=== PATIENT | male | born 1960 | race Caucasian/White ===

== ENCOUNTER 2021-08-06 08:50 | Emergency (ER) | payer OTHER, SELFPAY ==
--- NOTE | ~2021-08-06 | XR_ITS ---
EXAMINATION: XR chest 2V DATE: 08/06/2021 09:20 INDICATION: Productive cough TECHNIQUE: PA and lateral views of the chest are obtained. COMPARISON: None available FINDINGS: The lungs are free of acute opacities. There is no pleural effusion or pneumothorax. The ca rdiomediastinal silhouette is normal. There is mild thoracic spondylosis. IMPRESSION: 1. No acute cardiopulmonary abnormality. Reviewed, dictated and finalized at location A.
--- NOTE | 2021-08-06 09:00 | ED.URI ---
HPI - URI/Sore Throat General Chief Complaint: Upper Respiratory Infection Stated Complaint: Cough Time Seen by Provider: 08/06/21 09:06 Source: patient and RN notes reviewed Mode of arrival: ambulatory Limitations: no limitations History of Present Illness HPI Narrative: 60-year-old male presents to the [facility] with complaints of cough, fevers, wheezing, congestion for the last 4 to 5 days. had similar symptoms a week ago and is better. Has tried multiple [id number] products with no relief Onset (ago): day(s) (4-5) Consistency: constant Able to tolerate fluids by mouth: Yes Relieving factors: nothing Related Data Home Medications Medication Instructions Recorded Confirmed ezetimibe 10 mg tablet 10 tablet PO DAILY 08/06/21 08/06/21 fenofibrate nanocrystallized 145 145 mg PO DAILY 08/06/21 08/06/21 mg tablet losartan 50 mg tablet 50 mg PO DAILY 08/06/21 08/06/21 semaglutide 1 mg/dose (4 mg/3 mL) 0.5 mg subcut WEEKLY 08/06/21 08/06/21 subcutaneous pen injector (Ozempic) tadalafil 20 mg tablet 20 mg PO DAILY 08/06/21 08/06/21 Allergies Allergy/AdvReac Type Severity Reaction Status Date / Time No Known Allergies Allergy Verified 08/06/21 09:10 Review of Systems Review of Systems: All systems reviewed & are unremarkable except as noted in HPI and below Constitutional: Constitutional: Reports as per HPI, Reports chills and Reports fever(s) Eyes: Eyes: Reports no additional eye complaints ENT: Reports system reviewed and no additional complaints, except as documented Cardiovascular: Cardiovascular: Reports no additional cardiovascular complaints Respiratory: Respiratory: Reports as per HPI, Reports chest congestion, Reports cough, Reports dyspnea and Reports wheezing Gastrointestinal: Gastrointestinal: Reports no additional gastrointestinal complaints Musculoskeletal: Musculoskeletal: Reports no additional musculoskeletal complaints Integumentary/Breasts: Skin/Breast: Reports system reviewed and no additional complaints, except as docu Neurologic: Reports system reviewed and no additional complaints, except as documented Psychiatric: Psychiatric: Reports no additional psychiatric complaints Allergic/Immunologic: Allergic/Immunologic: Reports no additional allergic/immunologic complaints [facility] Past Medical History Medical History (Updated 08/06/21 @ 09:42 by Eli Lee APRN) Bilateral calcaneal fractures High cholesterol History of high blood pressure Social History Social History (Updated 08/06/21 @ 09:11 by Eli Lee APRN) Living arrangements: with family Gender identity (if verbalized by the patient): Male Comments At the time of my signature, I reviewed and agree with the nursing past medical, surgical, social, and family history. There is no relevant family history pertinent to the patient complaint. Exam Const: General: healthy appearing, no acute distress and alert Nutritional Appearance: well nourished Orientation/consciousness: patient oriented x3 Limitations: no limitations HENMT: Head: normal to inspection Ears: external ears normal General nose exam: Normal external nose present Throat: posterior oropharynx normal Eyes: General: appearance normal, both eyes and all related structures Pupils: Equal, round and reactive pupils present Neck: Neck: normal visual inspection, no lymphadenopathy and no meningeal signs Chest: Chest palpation & inspection: normal inspection of the chest Resp: Effort & Inspection: normal respiratory effort and no use of accessory muscles Auscultation: no crackles, no rales, rhonchi, wheezes and diminished lung sounds bilateral Cardio: Rate: regular rate Rhythm: regular rhythm GI: GI Palp: Yes Soft to palpation and No Tenderness to palpation present (GI) Back/Spine/Pelvis: Cervical Spine: normal cervical lordosis Thoracic/Lumbar Spine: thoracic and lumbar spine normal to inspection Skin: General skin exam: normal
[2021-08-06 09:01] VITALS: BP 149/80; PULSE 91; RESP 16; TEMP 37.8; O2SAT 100
[2021-08-06 09:04] VITALS: BP 149/80; PULSE 91; RESP 16; RESP 20; TEMP 37.8; O2SAT 100
[2021-08-06] MEDS: IPRATROPIUM BR 0.02% INH SOLN 0.5 MG/2.5 ML VIAL INHALATION (09:16)
[2021-08-06] MEDS: ALBUTEROL SULFATE NEB 2.5 MG/3 ML INH INHALATION (09:17)
[2021-08-06 10:01] VITALS: PULSE 91; RESP 20; O2SAT 98
== END 2021-08-06 10:10 | disposition home or self-care (01) ==
PROVIDERS: Emergency Provider Nurse Practitioner; PCP Family Medicine
DX: J40 Bronchitis, not specified as acute or chronic (principal); E78.00 Pure hypercholesterolemia, unspecified; I10 Essential (primary) hypertension
CPT/HCPCS: 71046; 99203; G0463

== ENCOUNTER 2023-03-09 08:23 | Emergency (ER) | payer OTHER, SELFPAY ==
[2023-03-09 08:34] VITALS: BP 128/80; PULSE 75; RESP 16; TEMP 36.9; O2SAT 96
[2023-03-09 08:37] VITALS: BP 128/80; PULSE 75; RESP 16; TEMP 36.9; O2SAT 96
--- NOTE | 2023-03-09 08:47 | ED.URI ---
HPI - URI/Sore Throat General Chief Complaint: Upper Respiratory Infection Stated Complaint: Sinus Time Seen by Provider: 03/09/23 08:40 Source: patient and RN notes reviewed Mode of arrival: ambulatory Limitations: no limitations History of Present Illness HPI Narrative: Patient presents today complaining of a one-month history of sinus pressure and drainage with postnasal drip that can be yellow to brown. He has tried Mucinex D, Claritin D, nasal spray. Related Data Home Medications Medication Instructions Recorded Confirmed ezetimibe 10 mg tablet 10 tablet PO DAILY 08/06/21 03/09/23 fenofibrate nanocrystallized 145 145 mg PO DAILY 08/06/21 03/09/23 mg tablet losartan 50 mg tablet 50 mg PO DAILY 08/06/21 03/09/23 tadalafil 20 mg tablet 20 mg PO DAILY 08/06/21 03/09/23 Allergies Allergy/AdvReac Type Severity Reaction Status Date / Time No Known Allergies Allergy Verified 08/06/21 09:10 Review of Systems Review of Systems: CONSTITUTIONAL: Denies body aches, fever, chills, or sweats. EYES: Denies visual changes, redness, or discharge. ENT: Denies rhinorrhea, sore throat, or otalgia.+ congestion, sinus pressure, postnasal drip CARDIOVASCULAR: Denies chest pain, palpitations, or edema. RESPIRATORY: Denies cough or dyspnea. GASTROINTESTINAL: Denies abdominal pain, nausea, vomiting, or diarrhea. GENITOURINARY: Denies dysuria or hematuria. SKIN: Denies rash, itching, or wounds. MUSCULOSKELETAL: Denies back pain, joint pain, or myalgia. NEUROLOGIC: Denies headache, numbness, tingling, or weakness. PSYCH: Denies depression or anxiety. COUNTS INCLUDE 234 BEDS AT THE [facility] Past Medical History Medical History Bilateral calcaneal fractures High cholesterol History of high blood pressure Social History Social History Living arrangements: with family Gender identity (if verbalized by the patient): Male Comments At time of signature, I have reviewed and agree with nursing past medical, surgical, social and family history unless otherwise noted. Please see nursing chart for further information. There is no relevant family history pertinent to the presenting complaint Exam Narrative: GENERAL: Well-appearing, well-nourished, and in no acute distress. HEAD: Normocephalic, atraumatic. EYES: EOMI. No redness or drainage. Conjunctivae normal. ENT: Mucous membranes pink and moist. Nares congested. No rhinorrhea. Bilateral erythematous and swollen nasal turbinates. Bilateral frontal and maxillary sinus tenderness. TMs normal bilaterally. Throat normal. Uvula midline. NECK: Normal AROM. Supple. No lymphadenopathy. CHEST: No respiratory distress. Clear to auscultation. HEART: Regular rate and rhythm. No murmur appreciated. EXTREMITIES: Normal range of motion. No edema. SKIN: Warm, dry, no rash. Capillary refill normal. Normal skin turgor. NEURO: No focal deficits. Alert and oriented x3. Gait steady. PSYCH: Normal affect. No signs of depression or anxiety. Course Course Level of Care: Express Care Visit Vital Signs Vital signs: Vital Signs Temperature 98.4 F 03/09/23 08:34 Pulse Rate 75 03/09/23 08:34 Respiratory Rate 16 03/09/23 08:34 Blood Pressure 128/80 03/09/23 08:34 Pulse Oximetry 96 03/09/23 08:34 Oxygen Delivery Room Air 03/09/23 08:34 Temperature 98.4 F 03/09/23 08:37 Pulse Rate 75 03/09/23 08:37 Respiratory Rate 16 03/09/23 08:37 Blood Pressure 128/80 03/09/23 08:37 Pulse Oximetry 96 03/09/23 08:37 Oxygen Delivery Room Air 03/09/23 08:37 Reviewed MDM - URI/Sore Throat MDM Narrative Medical decision making narrative: Patient will be treated with Augmentin and prednisone for his sinusitis. Anticipatory guidance given. Differential Diagnosis Differential diagnosis: Likely upper respiratory infection and sinusitis Critical Care Time Critic
== END 2023-03-09 08:54 | disposition home or self-care (01) ==
PROVIDERS: Emergency Provider Nurse Practitioner; PCP Family Medicine
DX: J32.9 Chronic sinusitis, unspecified (principal); E78.00 Pure hypercholesterolemia, unspecified; I10 Essential (primary) hypertension
CPT/HCPCS: 99213; G0463

== ENCOUNTER 2024-11-25 00:41 | Day surgery (SDC) | payer OTHER, SELFPAY ==
--- OUTSIDE RECORDS SUMMARY | 2024-11-25 00:45 | XMS_ITS | Encounter Summary ---
Author Organization [facility] Healthcare Address [address] [place] [address] Care Team Providers Care Ceo And Founder Name Role Phone Lonnie Roberts MD Primary Care Provider [phone] Encounter Details Date Type Department Care Team (Late st Contact Info) Description 09/30/2024 Results Follow-Up [facility] Family Medicine at [address] [place] [address] [place] [address] PSA screen, Lipid panel, Comprehensive metabolic panel, Additional followed-up results: 3 Social History Tobacco Use Types Packs/Day Years Used Date Smoking Tobacco: Never Smokeless Tobacco: Never Alcohol Use Standard Drinks/Week Comments Yes 3 (1 standard drink = 0.6 oz pur e alcohol) AUDIT-C Answer Date Recorded Q1: How often do you have a drink containing alc ohol? Monthly or less 09/21/2023 Q2: How many drinks containi ng alcohol do you have on a typical day when you are drinking? 1 or 2 09/21/2023 Frequency of Binge Drinking Not on file 06/2023 PHQ-2 Answer Date Recorded PHQ-2 Total Score (If total score is 3 or more points, staff should administer the PHQ-9) 2 10/03/2024 Personal Safety Answer Date Recorded Have you ever been in or are you currently in a harmful physical or emotional relationship or is someone making you feel afraid or unsafe? 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
--- OUTSIDE RECORDS SUMMARY | 2024-11-25 00:45 | XMS_ITS | Encounter Summary ---
Author Organization [facility] Healthcare Address [address] [place] [address] Care Team Providers Care 411 Directory Assistance Operator Name Role Phone Lonnie Roberts MD Primary Care Provider [phone] Encounter Details Date Type Department Care Team (Late st Contact Info) Description 11/20/2024 Results Follow-Up [facility] Family Medicine at [address] [place] [address] Lonnie Roberts MD [address] [place] [address] [address] [place] [address] Comprehensive metabolic panel, eGFR Social History Tobacco Use Types Packs/Day Years [...] on file 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
--- OUTSIDE RECORDS SUMMARY | 2024-11-25 00:45 | XMS_ITS | Clinical Summary ---
Author Organization [facility] Address [address] [place] [address] Care Team Providers Care Mixer Machine Feeder Name Role Phone Unavailable Primary Care Provider Unavailabl e Source Comments [facility],non-owned Affiliates and Associated Physician Practices is amultiple site organization consisting of ambulatory clinics and hospital sitesin [place], [place], [place] and [place]. This disclosure is being madepursuant to the Care Everywhere program and may not contain all information available regarding this patient. Last updated 17.[facility] Encounters Date Type Department Care Team Description 11/22/2024 Lab Requisition [facility] [address] [place] [address] Marisol Hassan PA Neoplasm of uncertain behavior of skin; Other specified erythematous conditions from Last 3 Months Social History Tobacco Use Types Packs/Day Years Used Date Smoking Tobacco: Never Assessed Sex and Gender Information Value Date Recorded Sex Assigned at Not on file Legal Sex Male 6:06 PM CDT Gender Identity Not on file Sexual Orientation Not on file Plan of Treatment Not on file Insurance [facility] Address: [facility] [id number] [place] [address]
--- OUTSIDE RECORDS SUMMARY | 2024-11-25 00:45 | XMS_ITS | Clinical Summary ---
Author Organization [facility] Address [address] [place] [address] Care Team Providers Care Self Sealing [employer] Builder Name Role Phone Lonnie Roberts MD Primary Care Provider Allergies No known active allergies Medications omeprazole (PriLOSEC) 10 mg capsule Take 1 capsule (10 mg total) by mouth daily 90 capsule 1 020 Active vusux-2-vud-epa-dpa -fish oil 1,050 mg(300 mg -675 mg-75 mg) capsule Take 2 capsules by mouth daily 021 Active fenofibrate nanocrystallized (TRICOR) 145 mg tablet TAKE 1 TABLET BY MOUTH EVERY DAY 90 tablet 1 024 Active Additional Information Patient taking differently: Every other day, Reported on 10/03/2024 tadalafiL (CIALIS) 20 mg tablet TAKE 1 TABLET BY MOUTH EVERY DAY NEEDED 6 tablet 2 025 Active losartan (COZAAR) 50 mg tablet TAKE 2 TABLETS BY MOUTH EVERY DAY 180 tablet 1 025 Active fluticasone propionate (FLONASE) 50 mcg/actuation nasal spray Administer 2 sprays into each nostril daily 1 each 5 025 Active ezetimibe (ZETIA) 10 mg tablet TAKE 1 TABLET BY MOUTH EVERY DAY 90 tablet 1 025 Active ezetimibe (ZETIA) 10 mg tablet TAKE 1 TABLET BY MOUTH EVERY DAY 90 tablet 1 025 2024 Discontinued Active Problems Problem Noted Date Diagnosed Date Allergic conjunctivitis of both eyes 12/29/2023 Assessment & Plan (12/29/2023 9:07 AM LOFTER): Still symptomatic with OTC gtts. Rx FML tid OU, return in 1 month for IOP. 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 Okay to decrease FML to once or twice daily for a week and then stop. Assessment & Plan (12/29/2023 9:07 AM LOFTER): Continue hot compress, Rx azithromycin 1g po weekly x 3 weeks. Discussed possible side effects. Return in 1 month for DFE. Assessment & Plan (09/02/2022 3:38 PM CDT): Recommend hot compress bid OU, Ats prn. Can call or mychart message if he is still bothered after 3-4 weeks, can consider steroid gtts. Thyroid nodule 01/07/2022 Assessment & Plan (01/07/2022 12:53 PM LOFTER): Differential diagnosis would include benign nodule (macrofollicular or adenomatoid/hyperplastic nodules, colloid adenomas, nodular goiter, and Moises's thyroiditis) vs thyroid carcinoma ( follicular , papillary ) FNA indicated Scheduled for Feb 2022 Essential hypertension, benign 04/09/2021 Nonrheumatic aortic (valve) insufficiency 2021 IFG (impaired fasting glucose) 01/30/2020 Metabolic syndrome 07/30/2018 PUCKETT (nonalcoholic steatohepatitis) 01/04/2018 Assessment & Plan (07/05/2018 11:48 AM CDT): Diet Exercise Weight loss follow ED (erectile dysfunction) 01/04/2018 Assessment & Plan (07/05/2018 11:52 AM CDT): Viagr a prn, diet/ exercise Choroidal nevus, both eyes 08/27/2017 Assessment & Plan (01/12/2024 11:32 AM LOFTER): Recommend repeat DFE and [facility] photos annually. Assessment & Plan (12/29/2023 9:08 AM LOFTER): Will have DFE and [facility] photos in 1 month. Assessment & Plan (09/02/2022 3:36 PM CDT): Chronic appearing, with overlying drusen, flat. Photos taken today. Follow with annual DFE. Assessment & Plan (08/27/2017 2:01 PM CDT): Chronic appearing, with overlying drusen, flat. Follow with annual DFE Nuclear sclerotic cataract of both eyes 08/28/19 Assessment & Plan (01/12/2024 11:31 AM LOFTER): NVS, follow. Assessment & Plan (12/29/2023 9:07 AM LOFTER): NVS, follow. Assessment & Plan (09/02/2022 3:35 PM CDT): NVS, follow. Assessment & Plan (08/27/2017 2:02 PM CDT): Not vis sig, SRx given Lagophthalmos, left 08/27/2017 Assessment & Plan (08/27/2017 2:05 PM CDT): Rec gel tears or AT [facility] Encounter for vision examination with abnormal f indings 08/27/2017 Assessment & Plan (08/27/2017 2:09 PM CDT): SRx given Hyperlipidemia 05/31/2015 Assessment & Plan (07/05/2018 11:48 AM CDT): On meds, doing well Hypogonadism in male 05/31/2015 Assessment & Plan (07/05/2018 11:48 AM CDT): CPM, follow TSH Chronic pain 05/31/2015 Assessment & Plan (07/05/2018 11:52 AM CDT): Limited pain meds, tramadol prn Resolved Problems Problem Noted Date Diagnosed Date Resolved Date Acute midline low back pain without sciatica 3 03/23/2023 Pain in left hip 06/06/2022 03/23/2023 Calcification of creek coronary artery 04/09/2021 03/23/2023 Abnormal EKG 04/09/2021 03/23/2023 URI with cough and congestion 01/28/2019 01/30/2020 Dyslipidemia 07/30/2018 04/09/2021 Abnormal EKG 07/05/2018 01/30/2020 Assessment & Plan (07/05/2018 11:53 AM CDT): Stress test Trigger middle finger of left hand 01/15/2018 03/23/2023 Trigger middle finger of right hand 01/15/2018 03/23/2023 HTN (hypertension) 05/31/2015 2 Assessment & Plan (07/05/2018 11:47 AM CDT): DASH diet, meds, doing well Encounters Date Type Department Care Team Description 11/20/2024 Results Follow-Up [facility] Family Medicine at [address] [place] [phone] Lonnie Roberts MD Comprehensive metabolic panel, eGFR 11/14/2024 10:00 AM CDT Lab [facility] [address] [place] [id number] PUCKETT (nonalcoholic steatohepatitis) 10/04/2024 Telephone [facility] Family Medicine at [address] [place] [phone] Lonnie Roberts MD Referral Request 10/03/2024 9:15 AM CDT Office Visit [facility] Medicine at [address] [place] [address] Lonnie Roberts MD Essential hypertension, benign (Primary Dx); Mixed hyperlipidemia; Gastroesophageal reflux disease without esophagitis; PUCKETT (nonalcoholic steatohepatitis); Colon cancer screening; IFG (impaired fasting glucose) 09/30/2024 7:05 AM CDT Lab [facility] [address] [place] [id number] Screening PSA (prostate specific antigen); Mixed hyperlipidemia 09/30/2024 Results Follow-Up [facility] at [address] [place] [phone] Chata Rey PA PSA screen, Lipid panel, Comprehensive metabolic panel, Additional followed-up results: 3 from Last 3 Months Immunizations Immunization Administration Dates Next Due Influenza, Quadrivalent, Zoya l Culture-based MDCK, Antibiotic Free, Intramuscular 12/02/2018 Influenza, Quadrivalent, Zoya l Culture-based MDCK, Preservative Free, Antibiotic Free, Intramuscular 11/13/2021,11/19/2020 Influenza, Quadrivalent, Spl it, Preservative Free, Intramuscular 11/30/2019,11/13/2017,11/27/2016 Influenza, Trivalent, Cell C ulture-based MDCK, Preservative Free, Antibiotic Free, Intramuscular 11/27/2023,11/24/2022,11/14/2021 Influenza, Unspecified 11/16/2020 Moderna SARS-CoV-2 Monovalen t Vaccination (12+ YRS) 01/16/2021 Sars-cov-2 Covid-19 Mrna, Bi valent, Original/omicron Ba.1 11/24/2022 ZOSTER Recombinant 02/11/2021,01/16/2021, 021 Surgical History Surgery Date Site/Laterality Comments HERNIA MESH REMOVAL CLOSED REDUCTION CALCANEAL FRACTURE ORAL SURGERY 2021 - 10/16/2021 FRACTURE SURGERY 2000 LASIK 2001 VASECTOMY 1999 LAMINECTOMY 12/11/2022 L4-L5 Medical History Medical History Date Comments Hyperlipidemia Hypertension GERD (gastroesophageal reflux disease) 2005 Arthritis Family History Medical History Relation Name Comments Arthritis Brother Herbert Fallon Heart disease Brother Herbert Fallon Heart disease Father Thanh Fallon Family histo ry of cardiac disorder - (Added by TW Conv) Hypertension Father Thanh Fallon Family histor y of hypertension - (Added by TW Conv) Arthritis Mother Lucila Fallon Hypertension Mother Lucila Fallon Family histo ry of hypertension - (Added by TW Conv) Arthritis Sister 2 Multiple sclerosis Sister 2 Relation Name Status Comments Brother Herbert Fallon Alive Father Thanh Fallon Maternal Grandfather Maternal Grandmother Mother Lucila Fallon Paternal Grandfather Paternal Grandmother Sister 2 Alive Social History Tobacco Use Types Packs/Day Years Used Date Smoking Tobacco: Never Smokeless Tobacco: Never Tobacco Cessation:Counseling Given: Not Answered Alcohol Use Standard Drinks/Week Comments Yes 3 [...] on file Legal Sex Male 2:14 AM LOFTER Gender Identity Male 09/23/2019 8:07 AM CDT Sexual Orientation Straight 09/23/2019 8: 07 AM CDT Obstetrics History Last Filed Vital Signs Vital Sign Reading Time Taken Comments Blood Pressure 134/84 10/03/2024 9:14 AM CDT Pulse 80 10/03/2024 9:14 AM CDT Temperature 37.1 C (98.7 F) 10/03/2024 9:14 AM CDT Respiratory Rate 18 09/21/2023 10:5 9 AM CDT Oxygen Saturation 98% 10/03/2024 9:14 AM CDT Inhaled Oxygen Concentration - - Weight 105.3 kg (232 lb 3.2 oz) 10/03/2024 9:14 AM CDT Height 185.4 cm (6' 1) 10/03/2024 9:14 AM CDT Body Mass Index 30.64 10/03/2024 9:14 AM CDT Plan of Treatment Health Maintenance Due Date Last Done Comments DTaP/Tdap/Td Vaccine (1 - Tdap) 1972 Hepatitis B Screening 09/17/1979 Pneumococcal vaccine <65 (1 of 2 - PCV) 1980 Colon Cancer Screening-Colonoscopy 05/18/2023 05/17/2018 Regular Well Visit/Exam 18-64 09/20/2024 09/21/2023 Covid-19 Vaccine (2024-2 6 season) 2024 11/24/2022, 02/04/2021, 01/16/2021, Additional history exists Influenza Vaccine (#1) 2024 , 11/24/2022, 11/14/2021, Additional history exists Depression Screening 10/03/2025 10/03/2024, 09/21/2023, 08/20/2022, Additional history exists Prostate Cancer Screening-PSA 09/30/2026, 09/07/2023, 03/20/2023, Additional history exists Colon Cancer Screening-CT Colonography Discontinued 05/17/2018 Colon Cancer Screening-DNA Stool Discontinued 05/18/19 Colon Cancer Screening-FIT Discontinued 05/17/2018 Colon Cancer Screening-Sigmoidoscopy Discontinued 05/17/2018 Hepatitis C Screening Completed 01/28/2021 Zoster Vaccine Completed 02/11/2021, 1202/2020, 11/19/2020 Procedures Procedure Name Priority Date/Time Associated Diagnosis Comments EGFR Routine 11/14/2024 10:10 AM CDT PUCKETT (nonalcoholic steatohepatitis) COMPREHENSIVE METABOLIC PANEL Routine 11/14/2024 10:10 AM CDT PUCKETT (nonalcoholic steatohepatitis) POCT HEMOGLOBIN A1C Routine 10/03/2024 1 0:39 AM CDT IFG (impaired fasting glucose) EGFR Routine 09/30/2024 7:12 AM CDT Mixed hyperlipidemia DIFFERENTIAL AUTO Routine 09/30/2024 7:1 2 AM CDT Mixed hyperlipidemia CBC WITH AUTO DIFFERENTIAL Routine 09/30/2024 7:12 AM CDT Mixed hyperlipidemia COMPREHENSIVE METABOLIC PANEL Routine 09/30/2024 7:12 AM CDT Mixed hyperlipidemia LIPID PANEL Routine 09/30/2024 7:12 AM CDT Mixed hyperlipidemia PSA SCREEN Routine 09/30/2024 7:12 AM CDT Screening PSA (prostate specific antigen) HEPATITIS C ANTIBODY Routine 01/28/2021 8:40 AM LOFTER Exposure to potentially hazardous body fluids HM COLONOSCOPY Routine 05/17/2018 from Last 3 Months or Most Recently Relevant to Health Maintenance Results * eGFR (11/14/2024 10:10 AM CDT) eGFR >90 >=60 mL/min/1. 73 m2 Comment: Interpretive Data Reference Interval Normal >/= 90 mL/min/1.73m2 Mildly decreased* 60 - 89 mL/min/1.73m2 Mildly to moderately decreased 45 - 59 mL/min/1.73m2 Moderately to severely decreased 30 - 44 mL/min/1.73m2 Severely decreased 15 - 29 mL/min/1.73m2 Kidney Failure < 15 mL/min/1.73m2 *Relative to young adult level Estimated glomerular filtration rate is determined by the 2020 CKD-EPI equation recommended by the National Kidney Foundation (A Unifying Approach to GFR Estimation: Recommendations of the NKF-ASK Task Force on Reassessing the Inclusion of Race in Diagnosing Kidney Disease, JASN 2020). The CKD-EPI equation should not be used for patients with unstable renal function and has not been validated in children and those over 70. Current interpretive data was last reviewed 2020. Testing performed by: [address] [address] Blood 11/14/2024 10:1 0 AM CDT 11/14/2024 10:29 AM CDT us Lonnie Roberts MD LAB BLOOD ORDERABLES Final Re sult [facility] [address] [facility] Department [place] [address] * (ABNORMAL) Comprehensive metabolic panel (11/14/2024 10:10 AM CDT) Sodium 138 135 - 145 mmol/L Comment:Testing performed by : [address] [address] Potassium, pl 4.4 3.3 - 4.9 mmol/L [place] Comment:Testing performed by : [address] [address] Chloride 102 97 - 110 mmol/L [place] Comment:Testing performed by : [address] [address] CO2 23 22 - 32 mmol/L [place] Comment:Testing performed by : [address] [address] Anion gap 13 2 - 15 mmol/L [place] Comment:Testing performed by : [address] [address] BUN 17 6 - 25 mg/dL [place] Comment:Testing performed by : [address] [address] Creatinine 0.80 0.80 - 1.30 mg/dL [place] Comment:Testing performed by : [address] [address] Glucose 114 70 - 199 mg/dL [place] Comment: Interpretive Data Fasting glucose >/= 126 mg/dl is diagnostic for diabetes. Fasting is defined as no caloric intake for at least 8 hours. Fasting glucose between 100 mg/dl to 125 mg/dl is diagnostic of prediabetes. In a patient with classic symptoms of hyperglycemia or hyperglycemic crisis, a random glucose >/= 200 mg/dl is diagnostic for diabetes. In the absence of unequivocal hyperglycemia, results should be confirmed by repeat testing. The classification and Diagnosis of Diabetes Diabetes Care 202; 46: S19-S40. Current interpretive data was last revised 2022. Testing performed by: [facility], [address] [place] [address]., [address] Calcium 9.9 8.5 - 10.3 mg/dL [place] Comment:Testing performed by : [address] [address] Bilirubin, total 0.9 0.1 - 1.2 mg/dL [place] Comment:Testing performed by : [address] [address] Protein, pl 7.2 6.5 - 8.5 g/dL [place] Comment:Testing performed by : [address] [address] Albumin 4.8 3.5 - 5.0 g/dL [place] Comment:Testing performed by : [address] [address] Alk phos 51 40 - 130 Units/L [place] Comment:Testing performed by : [address] [address] ALT 69(H) 7 - 55 Units/L [place] Comment:Testing performed by : [address] [address] AST 43 10 - 50 Units/L [place] Comment:Testing performed by : [address] [address] Blood 11/14/2024 10:1 0 AM CDT 11/14/2024 10:29 AM CDT us Lonnie Roberts MD LAB BLOOD ORDERABLES Final Re sult [place] [facility] [address] [facility] Department [place] [address] * POCT hemoglobin A1c (10/03/2024 10:39 AM CDT) [facility] Hemoglobin A1C, POC 5.4 4.0 - 5.6 % Blood spot 10/03/2024 10:3 9 AM CDT Lonnie Roberts MD POINT OF CARE TEST ORDERABLES Final Result * eGFR (09/30/2024 7:12 AM CDT) [facility] eGFR >90 >=60 mL/min/1. 73 m2 Comment: Interpretive Data Reference Interval Normal >/= 90 mL/min/1.73m2 Mildly decreased* 60 - 89 mL/min/1.73m2 Mildly to moderately decreased 45 - 59 mL/min/1.73m2 Moderately to severely decreased 30 - 44 mL/min/1.73m2 Severely decreased 15 - 29 mL/min/1.73m2 Kidney Failure < 15 mL/min/1.73m2 *Relative to young adult level Estimated glomerular filtration rate is determined by the 2020 CKD-EPI equation recommended by the National Kidney Foundation (A Unifying Approach to GFR Estimation: Recommendations of the NKF-ASK Task Force on Reassessing the Inclusion of Race in Diagnosing Kidney Disease, JASN 2020). The CKD-EPI equation should not be used for patients with unstable renal function and has not been validated in children and those over 70. Current interpretive data was last reviewed 2020. Testing performed by: [address] [address] Blood 09/30/2024 7:12 AM CDT 09/30/2024 8:46 AM CDT Lonnie Roberts MD LAB BLOOD ORDERABLES Final Re sult [id number] [address] [facility] Department [place] [address] * Differential, auto (09/30/2024 7:12 AM CDT) [facility] Neutrophil abs 2.80 1.50 - 6.50 K/cumm Comment:Testing performed by : [address] [address] Imm gran abs 0.04 0.00 - 0.10 K/cumm [facility] Comment:Testing performed by : [address] [address] Lymphocyte abs 1.92 0.80 - 3.30 K/cumm [facility] Comment:Testing performed by : [address], [place]., [address] Monocyte abs 0.44 0.20 - 0.80 K/cumm [facility] Comment:Testing performed by : [address], [place]., [address] Eosinophil abs 0.16 0.00 - 0.50 K/cumm [facility] Comment:Testing performed by : [address] [address] Basophil abs 0.10 0.00 - 0.10 K/cumm [facility] Comment:Testing performed by : [address] [address] Neutrophil pct 51.3 % [facility] Comment: Interpretive Data Percent cell count reference ranges are not reported, since discordance with absolute values may lead to misinterpretation of CBC data. Current Interpretive Data was last revised on 2017. Testing performed by: [address] [address] Imm gran pct 0.7 % [facility] Comment: Interpretive Data Percent cell count reference ranges are not reported, since discordance with absolute values may lead to misinterpretation of CBC data. Current Interpretive Data was last revised on 2017. Testing performed by: [address] [address] Lymphocyte pct 35.2 % [facility] Comment: Interpretive Data Percent cell count reference ranges are not reported, since discordance with absolute values may lead to misinterpretation of CBC data. Current Interpretive Data was last revised on 2017. Testing performed by: [address] [address] Monocyte pct 8.1 % [facility] Comment: Interpretive Data Percent cell count reference ranges are not reported, since discordance with absolute values may lead to misinterpretation of CBC data. Current Interpretive Data was last revised on 2017. Testing performed by: [address] [address] Eosinophil pct 2.9 % [facility] Comment: Interpretive Data Percent cell count reference ranges are not reported, since discordance with absolute values may lead to misinterpretation of CBC data. Current Interpretive Data was last revised on 2017. Testing performed by: [address] [address] Basophil pct 1.8 % [facility] Comment: Interpretive Data Percent cell count reference ranges are not reported, since discordance with absolute values may lead to misinterpretation of CBC data. Current Interpretive Data was last revised on 2017. Testing performed by: [address] [address] Blood 09/30/2024 7:12 AM CDT 09/30/2024 8:32 AM CDT us Lonnie Roberts MD LAB BLOOD ORDERABLES Final Re sult [place] [address] [facility] Department [place] [address] * PSA screen (09/30/2024 7:12 AM CDT) PSA-Total 0.35 <=5.40 ng/mL Comment: Interpretive Data AGE SEX REFERENCE INTERVAL 0 minutes-150 years Female None 0 minutes-49 years Male None 50-59 years Male 0-3.90 60-69 years Male 0-5.40 70-79 years Male 0-6.20 80-150 years Male 0-6.20 The Feliz PSA Total assay procedure was used. Results from different manufacturers or methods may not be comparable. Serial testing should be performed using the same method. Current interpretive data last revised 21. Testing performed by: [address] [address] Blood 09/30/2024 7:12 AM CDT 09/30/2024 8:33 AM CDT Lonnie Roberts MD LAB BLOOD ORDERABLES Final Re sult [facility] [address] [facility] Department [place] [address] * (ABNORMAL) CBC with auto differential (09/30/2024 7:12 AM CDT) WBC 5.46 3.80 - 9.90 K/cumm Comment:Testing performed by : [address] [address] Hgb 16.5 13.0 - 17.5 g/dL [place] Comment:Testing performed by : [address], [address] Hct 44.8 38.9 - 50.3 % [place] Comment:Testing performed by : [address] [address] Plt 243 150 - 400 K/cumm [place] Comment:Testing performed by : [address] [address] MPV 11.3 9.1 - 12.3 fL [place] Comment:Testing performed by : [address] [address] RBC 4.73 4.30 - 5.80 M/cumm [place] Comment:Testing performed by : [address] [address] MCV 94.7 81.3 - 96.4 fL [place] Comment:Testing performed by : [address] [address] MCH 34.9(H) 27.1 - 33.3 pg [place] Comment:Testing performed by : [address] [address] MCHC 36.8(H) 32.3 - 35.7 g/dL [place] Comment:Testing performed by : [address] [address] RDW CV 12.4 11.1 - 14.9 % [place] Comment:Testing performed by : [address], [address] RDW SD 43.0 35.7 - 48.1 fL [place] [facility] Comment:Testing performed by : [facility], [address] [place] [address]., [address] NRBC abs 0.00 0.00 - 0.01 K/cumm [place] [facility] Comment:Testing performed by : [facility], [address] [place] [address]., [address] Blood 09/30/2024 7:12 AM CDT 09/30/2024 8:32 AM CDT us Lonnie Roberts MD LAB BLOOD ORDERABLES Final Re sult [place] [facility] [address] [facility] Department [place] [address] * (ABNORMAL) Lipid panel (09/30/2024 7:12 AM CDT) Cholesterol 193 30 - 199 mg/dL Comment: Interpretive Data Ages < or = 19 years Acceptable: <170 mg/dL Borderline high: 170-199 mg/dL High: >or= 200 mg/dL Ages > or = 20 years Desirable: <200 mg/dL Borderline high: 200-239 mg/dL High: >or= 240 mg/dL Literature References: 1. Expert Panel on Integrated Guidelines for Cardiovascular Health and Risk Reduction in Children and Adolescents. Pediatrics 2011;128:S213 2. NCEP Expert Panel. Circulation 2004;110:227 Current Interpretive Data was last revised on 2017. Testing performed by: [address] [address] Triglycerides 272(H) <=149 mg/dL [place] [facility] Comment: Interpretive Data Ages < or = 9 years Acceptable: <75 mg/dL Borderline high: 75-99 mg/dL High: >or= 100 mg/dL Ages 10 to 20 years Acceptable: <90 mg/dL Borderline high: 90-129 mg/dL High: >or= 130 mg/dL Ages > or = 20 years Desirable: <150 mg/dL Borderline high: 150-199 mg/dL High: 200-499 mg/dL Very high: >or= 499 mg/dL Literature References: 1. Expert Panel on Integrated Guidelines for Cardiovascular Health and Risk Reduction in Children and Adolescents. Pediatrics 2011;128:S213 2. NCEP Expert Panel. Circulation 2004;110:227 Current Interpretive Data was last revised on 2017. Testing performed by: [address] [address] HDL 30(L) >=40 mg/dL [place] Comment: Interpretive Data Ages < or = 19 years Acceptable: >45 mg/dL Borderline low: 40-45 mg/dL Low: <40 mg/dL Ages > or = 20 years Desirable: >or= 60 mg/dL Low: <40 mg/dL Literature References: 1. Expert Panel on Integrated Guidelines for Cardiovascular Health and Risk Reduction in Children and Adolescents. Pediatrics 2011;128:S213 2. NCEP Expert Panel. Circulation 2004;110:227 Current Interpretive Data was last revised on 2017. Testing performed by: [address] [address] LDL, calculated 115 <=129 mg/dL [place] Comment: Interpretive Data Ages < or = 19 years Acceptable: <110 mg/dL Borderline high: 110-129 mg/dL High: >or= 130 mg/dL Ages > or = 20 years Optimal: <100 mg/dL Near optimal: 100-129 mg/dL Borderline high: 130-159 mg/dL High: >160 mg/dL Calculated using the Pito LDL-C estimating equation. This equation was implemented on 2023. Prior to this date LDL-C was estimated using the Friedewald equation. Literature References: 1. Expert Panel on Integrated Guidelines for Cardiovascular Health and Risk Reduction in Children and Adolescents. Pediatrics 2011;128:S213 2. NCEP Expert Panel. Circulation 2004;110:227 3. Pito Royal al. MICKY Cardiol. 2020 June 16;5(5):540-548. doi: 10.1001/[email or web address] Current Interpretive Data was last revised on 2023. Testing performed by: [address] [address] Non-HDL Cholesterol 163 mg/dL [place] Comment: Interpretive Data Ages < or = 19 years Acceptable: <120 mg/dL Borderline high: 120-144 mg/dL High: >145 mg/dL Ages > or = 20 years When triglycerides are >200 mg/dL, Non-HDL cholesterol is a secondary target of therapy with treatment goals that are 30 mg/dL greater than the LDL cholesterol target. Literature References: 1. Expert Panel on Integrated Guidelines for Cardiovascular Health and Risk Reduction in Children and Adolescents. Pediatrics 2011;128:S213 2. NCEP Expert Panel. Circulation 2004;110:227 Current Interpretive Data was last revised on 2017. Testing performed by: [address] [address] Chol/HDL ratio 6 [place] Comment:Testing performed by : [address] [address] [address] Blood 09/30/2024 7:12 AM CDT 09/30/2024 8:33 AM CDT us Lonnie Roberts MD LAB BLOOD ORDERABLES Final Re sult [place] [address] [facility] Department [place] [address] * (ABNORMAL) Comprehensive metabolic panel (09/30/2024 7:12 AM CDT) [facility] Sodium 138 135 - 145 mmol/L Comment:Testing performed by : [address] [address] Potassium, pl 4.3 3.3 - 4.9 mmol/L [place] [facility] Comment: Hemolyzed; Potassium value may be falsely elevated by as much as 1.0 mmol/L. Suggest redraw and reanalysis. Testing performed by: [address] [address] Chloride 102 97 - 110 mmol/L [place] Comment:Testing performed by : [address] [address] CO2 22 22 - 32 mmol/L [place] Comment:Testing performed by : [address] [address] Anion gap 14 2 - 15 mmol/L [facility] Comment:Testing performed by : [address] [address] BUN 17 6 - 25 mg/dL [place] Comment:Testing performed by : [address] [address] Creatinine 0.83 0.80 - 1.30 mg/dL [place] Comment:Testing performed by : [address] [address] Glucose 121 70 - 199 mg/dL [place] Comment: Interpretive Data Fasting glucose >/= 126 mg/dl is diagnostic for diabetes. Fasting is defined as no caloric intake for at least 8 hours. Fasting glucose between 100 mg/dl to 125 mg/dl is diagnostic of prediabetes. In a patient with classic symptoms of hyperglycemia or hyperglycemic crisis, a random glucose >/= 200 mg/dl is diagnostic for diabetes. In the absence of unequivocal hyperglycemia, results should be confirmed by repeat testing. The classification and Diagnosis of Diabetes Diabetes Care 202; 46: S19-S40. Current interpretive data was last revised 2022. Testing performed by: [address] [address] Calcium 10.1 8.5 - 10.3 mg/dL [facility] Comment:Testing performed by : [address] [address] Bilirubin, total 1.1 0.1 - 1.2 mg/dL [facility] Comment:Testing performed by : [address] [address] Protein, pl 7.5 6.5 - 8.5 g/dL [facility] Comment:Testing performed by : [address] [address] Albumin 4.6 3.5 - 5.0 g/dL [facility] Comment:Testing performed by : [address] [address] Alk phos 48 40 - 130 Units/L [place] Comment:Testing performed by : [address] [address] ALT 116(H) 7 - 55 Units/L [facility] Comment:Testing performed by : [address] [address] AST 72(H) 10 - 50 Units/L MI Comment: Hemolyzed; result may be falsely elevated Testing performed by: [facility], [address] [place] [address], [place]., [address] Blood 09/30/2024 7:12 AM CDT 09/30/2024 8:33 AM CDT Lonnie Roberts MD LAB BLOOD ORDERABLES Final Re sult Performing Organization Address [facility] Co de Phone Number [place] [address] [facility] Department [place] [address] * Hepatitis C antibody (01/28/2021 8:40 AM LOFTER) Hep C Ab Nonreactive Nonreactive [place] [facility] Comment: Interpretive Data Nonreactive: Antibodies to HCV not detected. Does NOT exclude the possibility of recent exposure to HCV. Equivocal: Equivocal for HCV antibodies. Supplemental molecular testing will be automatically performed to determine infection status in accordance with current CDC screening recommendations. Reactive: Positive for HCV antibodies. This may represent current or past HCV infection. Supplemental molecular testing will be automatically performed to determine current infection status in accordance with current CDC screening recommendations. Interpretive data was last revised on 2019. Blood 01/28/2021 8:40 AM [facility]TER 01/28/2021 1:52 PM [facility]TER Lonnie Roberts MD LAB MICROBIOLOGY - GENERAL OR DERABLES Final Result Performing Organization Address [facility] Co de Phone Number [facility] [address] [address] Department [place] [address] * COLONOSCOPY (05/17/2018) Colonoscopy Normal Juan Harman MD HEALTH MAINTENANCE Final Result from Last 3 Months or Most Recently Relevant to Health Maintenance Insurance [facility] Care Teams [employer] Relationship Specialty Start Date End Date Lonnie Roberts MD PCP - General 09/05/16
--- OUTSIDE RECORDS SUMMARY | 2024-11-25 00:45 | XMS_ITS | Clinical Summary ---
Author Organization [facility] Address [address] [place] [id number] Care Team Providers Care Sales Service Coordinator Name Role Phone None, Provider Primary Care Provider Unavaila ble Immunizations Immunization Administration Dates Next Due MODERNA COVID-19 (12+) MRNA, LNP-S, PF, 100 MCG/ 0.5 ML DOSE 01/16/2021 Social History Tobacco Use Types Packs/Day Years Used Date Smoking Tobacco: Never Assessed Sex and Gender Information Value Date Recorded Sex Assigned at Not on file Legal Sex Male 5:27 PM CDT Gender Identity Male 02/22/2021 4:53 PM [employer] Sexual Orientation Straight 02/22/2021 4 :53 PM [employer] WORKER Plan of Treatment Health Maintenance Due Date Last Done Comments Colorectal Cancer Screening Colonoscopy (10 Years) 1960 Annual Physical 1964 Hepatitis C 09/17/1979 DTaP, Tdap and Td Vaccines (1 - Tdap) 1980 Pneumococcal Vaccine: 50+ Years (1 of 1 - PCV) 09/17/2011 COVID-19 Vaccine (5 - season) 2024 02/04/2021, 01/16/2021, 05/07/2020, Additional history exists Influenza Adult (#1) 2024 11/19/2020, 11/16/2020, 11/30/2019, Additional history exists RSV Immunization or 60+ Years (1 - 1-dose 75+ series) 2036 Zoster Vaccines Completed 02/11/2021, 12/02/2020, 11/19/2020 Meningococcal B Vaccine Aged Out No l onger eligible based on patient's age to complete this topic Meningococcal Vaccine Aged Out No ronald bella eligible based on patient's age to complete this topic RSV Immunizations Under 20 Months Aged Out No longer eligible based on patient's age to complete this topic Insurance [employer] [facility] Care Teams Sales Service Coordinator Relationship Specialty Start Date End Date None, Provider, PCP - General 02/07/21
--- OUTSIDE RECORDS SUMMARY | 2024-11-25 00:45 | XMS_ITS | Encounter Summary ---
Author Organization [facility] Address [address] [facility] [place] [address] Care Team Providers Care Ferruler Name Role Phone Unavailable Primary Care Provider Unavailabl e Encounter Details Date Type Department Care Team (Late st Contact Info) Description 11/22/2024 Lab Requisition [facility] [address] [facility] [place] [id number] Marisol Hassan PA [address] [place] [address] Neoplasm of uncertain behavior of skin; Other specified erythematous conditions Social History Tobacco Use Types Packs/Day Years Used Date Smoking Tobacco: Never Assessed Sex and Gender Information Value Date Recorded Sex Assigned at Not on file Legal Sex Male 6:06 PM CDT Gender Identity Not on file Sexual Orientation Not on file documented as of this encounter Plan of Treatment Pending Results Name Type Priority Associated Diagnoses Date /Time DERMATOPATHOLOGY Pathology Cytology Routine Neoplasm of uncertain behavior of skin Other specified erythematous conditions 11/22/2024 11:30 AM CDT documented as of this encounter Visit Diagnoses Diagnosis Neoplasm of uncertain behavior of skin Other specified erythematous conditions documented in this encounter
[2024-11-25 12:21] VITALS: BP 137/79; PULSE 75; RESP 18; TEMP 36.6; O2SAT 98; BMI 29.6
[2024-11-25] MEDS: LACTATED RINGERS 1,000 ML 150 ML IV CONT (12:31)
--- NOTE | 2024-11-25 12:39 | WPDANESEPPF ---
Anes - Initial Pre Proc Eval Procedure: Operation Date: 11/25/24 13:45 Proposed Procedures p EGD & Screening Colonoscopy - David Kay MD Date/Time: 11/25/24 12:39 Surgeon: David Kay MD Pre Op Diagnosis: GERD/SCREENING/HX COLON POLYPS Patient Data Age: 64 Gender: M Height: 1.85 m Weight: 101.8 kg Last Vital Signs Temp 36.6 C 11/25/24 12:21 Pulse 75 11/25/24 12:21 Resp 18 11/25/24 12:21 BP 137/79 11/25/24 12:21 Pulse Ox 98 11/25/24 12:21 O2 Del Method Room Air 11/25/24 12:21 Allergies Allergy/AdvReac Type Severity Reaction Status Date / Time No Known Allergies Allergy Verified 11/25/24 12:20 Home Medications ?Medication ?Instructions ?Recorded ?Confirmed ?Type ezetimibe 10 mg tablet 10 tablet PO DAILY 08/06/21 11/25/24 History fenofibrate nanocrystallized 145 145 mg PO DAILY 08/06/21 11/25/24 History mg tablet losartan 50 mg tablet 50 mg PO DAILY 08/06/21 11/25/24 History Patient hx anesthesia problems: none Family hx anesthesia problems: none Results Review: All pre-operative results and documents have been reviewed as part of the pre-operative evaluation. [facility] Past Medical History Medical History Bilateral calcaneal fractures High cholesterol History of high blood pressure Social History Social History Drinks per week: 3 Living arrangements: with family Gender identity (if verbalized by the patient): Male Anes - Eval Final PreProcedure Day of Procedure 11/25/24 12:39 Patient weight: overweight Heart: regular rate and rhythm Lungs: clear to auscultation Airway: Mallampati scale class II Last oral intake: >/= 8 hours ASA classification: II Emergent: no Anesthetic plan: proceed Anesthesia type and monitoring: general GIVS and standard monitoring Results Review: All pre-operative results and documents have been reviewed as part of the pre-operative evaluation. Informed Consent: The patient's anesthetic plan and its attendant risks and benefits were discussed with the patient/family/POA. Questions were solicited and answers provided to the satisfaction of the patient/family/POA.
--- NOTE | 2024-11-25 12:42 | PM.HPGS ---
History of Present Illness History of Present Illness Consent: Risks, benefits, and alternatives have been discussed and questions answered. Patient agrees to proceed with procedure. Chief complaint: GERD/SCREENING/HX COLON POLYPS Narrative: Hermilo Fallon is a 64 year old male with colon polyp 5 years ago, also gerd on omeprazole but lately more symptomatic Review of Systems Review of Systems: All systems reviewed & are unremarkable except as noted in HPI and below PMFSH Past Medical History Medical History (Updated 11/25/24 @ 12:42 by David Kay MD) Colon polyp GERD (gastroesophageal reflux disease) Fatty liver Elevated liver enzymes Bilateral calcaneal fractures High cholesterol History of high blood pressure Social History Social History Drinks per week: 3 Living arrangements: with family Gender identity (if verbalized by the patient): Male Meds Home Medications and Allergies Home Medications ?Medication ?Instructions ?Recorded ?Confirmed ?Type ezetimibe 10 mg tablet 10 tablet PO DAILY 08/06/21 11/25/24 History fenofibrate nanocrystallized 145 145 mg PO DAILY 08/06/21 11/25/24 History mg tablet losartan 50 mg tablet 50 mg PO DAILY 08/06/21 11/25/24 History Allergies Allergy/AdvReac Type Severity Reaction Status Date / Time No Known Allergies Allergy Verified 11/25/24 12:20 Vital Signs Vital Signs - 24 hr 11/25/24 12:21 Temperature 98 F Pulse Rate 75 Respiratory Rate 18 Blood Pressure 137/79 Pulse Oximetry 98 Oxygen Delivery Room Air Exam Const: General: comfortable and no acute distress HENMT: Face/Nose/Sinus: Normal nares present Eyes: General: appearance normal, both eyes and all related structures Neck: Neck: no JVD Resp: Auscultation: clear to auscultation bilaterally Cardio: Rate: regular rate Rhythm: regular rhythm GI: Inspection: non-distended GI Palp: Yes Soft to palpation Skin: General skin exam: normal color Extrem: General: normal to inspection Psych: Mental Status: mental status grossly normal Assessment and Plan Assessment and plan (1) GERD (gastroesophageal reflux disease): Code(s): K21.9 - Gastro-esophageal reflux disease without esophagitis Status: Acute Assessment and Plan: egd with bx (2) Colon polyp: Code(s): K63.5 - Polyp of colon Status: Acute Assessment and Plan: colonoscopy
--- NOTE | 2024-11-25 12:52 | SUR.OPER ---
Abrasion noted to top of forehead intraoperatively.
--- NOTE | 2024-11-25 12:52 | SUR.OPER ---
EGD end 1249 Colonoscopy start 1257
--- NOTE | 2024-11-25 13:02 | S_PTH ---
PATIENT: Hermilo Fallon LOC: [facility]#:[id number] AGE/SX: 64/M ROOM: RE11/25/[address]: David Kay MD : 1960 BED: DIS: 11/25/2024 SPEC #: [id number] RECD: 11/25/24 13:52 STATUS: SAMEERA RECale #: [id number] JANIYA: 11/25/24 13:[address]: David Kay DEPT: [facility] Surgical RECD BY: Joaquin Cornell ENTERED: 11/25/24 13:53 SP TYPE: Surgical OTHR DR: Lonnie Roberts, Tissues: A - Gastric Biopsy B - Colon Polypectomy C - Colon Polypectomy Procedures: Hematoxylin and Eosin Stain Gross and Microscopic Level 4
[2024-11-25 13:04] VITALS: BP 122/68; PULSE 68; RESP 20; O2SAT 98
[2024-11-25 13:14] VITALS: BP 135/83; PULSE 72; RESP 18; O2SAT 97
[2024-11-25 13:24] VITALS: BP 131/74; PULSE 70; RESP 18; O2SAT 97
== END 2024-11-25 13:38 | disposition home or self-care (01) ==
PROVIDERS: PCP Family Medicine; Visit Provider Internal Medicine Gastroenterology
PROC: 0DJ08ZZ Inspection of Upper Intestinal Tract, Via Natural or Artificial Opening Endoscopic (ICD-10-PCS; CPT 45378; principal; 2024-11-25 13:45)
DX: Z12.11 Encounter for screening for malignant neoplasm of colon (principal); D12.5 Benign neoplasm of sigmoid colon; K63.5 Polyp of colon; K64.8 Other hemorrhoids; K57.30 Diverticulosis of large intestine without perforation or abscess without bleeding; K21.9 Gastro-esophageal reflux disease without esophagitis; K29.50 Unspecified chronic gastritis without bleeding; K44.9 Diaphragmatic hernia without obstruction or gangrene; E78.00 Pure hypercholesterolemia, unspecified; I10 Essential (primary) hypertension
CPT/HCPCS: 43239; 45380; 45385; 88305; J2704; J7120